=== PATIENT | female | born 1965 | race Caucasian/White ===

== ENCOUNTER → 2019-02-20 | Day surgery (SDC) | payer OTHER ==
--- NOTE | 2019-02-27 09:17 | WOMENS IMAGING REPORT ---
EXAM DESCRIPTION: U/S BREAST BX; RIGHT DIAGNOSTIC MAMMO W/CAD COMPLETED DATE/TIME: 02/24/2019 9:15 am; 02/24/2019 10:51 am REASON FOR STUDY: LUMP IN RT BREAST N63.10; S/P US BREAST BX FOR CLIP PLACEMENT N63.10 UNSPECIFIED LUMP IN THE RIGHT BREAST, UNSPECIFIED EDMOND COMPARISON: None. TECHNIQUE: The procedure was discussed with the patient and the patient agreed to proceed. The patient was scanned and the area of interest in the 2 o'clock position of the right breast was lo calized. This correlates with the area of concern on prior imaging studies. This area was targeted f or ultrasound-guided core biopsy. After sterile skin prep and Three mL local lidocaine 1 % skin and deep tissue anesthesia, a 14 gauge core biopsy needle was used to obtain several cores of tissue from the lesion. Under ultrasound guid ance, a ribbon clip was placed in the areas sampled. There were no immediate post-procedure complica tions. MAMMOGRAM: Post-procedure two view mammogram was acquired in the digital mammogram suite. The clip wa s in the expected location. No significant hematoma. 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 Pathology is concordant. LIMITATIONS: None. FINDINGS: Ultrasound guided breast biopsy as described above. POST PROCEDURE MAMMOGRAMS FOR MARKER PLACEMENT: Yes IMPRESSION: ULTRASOUND-GUIDED CORE BIOPSY OF THE RIGHT BREAST YIELDS A DIAGNOSIS OF BENIGN FIBROADEN PADMINI. COMMENT: COMMUNICATION: The patient's provider has been notified of the findings. The provider will discuss the findings with the patient. Patient medication list reviewed: Yes- Quality ID# [id number]:Eligible professional attests to documenting i n the medical record they obtained, updated, or reviewed the patient's current medications. TECHNICAL DOCUMENTATION: JOB ID: [id number] [employer]- All Rights Reserved Reading location - IP/workstation name: [email or web address]
== END ==
LOC: EDBD 08:29 → WI 08:29
PROVIDERS: ATTEND Nurse Practitioner Family
DX: N60.31 Fibrosclerosis of right breast (principal); D24.1 Benign neoplasm of right breast
CPT/HCPCS: 88305 ×2; 19083; 77065; J3490